=== PATIENT | male | born 1950 | race Caucasian/White ===

== ENCOUNTER 2017-05-31 09:17 | Outpatient (CLI) | payer MEDICARE, BC ==
--- NOTE | 2017-05-31 15:20 | RAD ---
LEFT SHOULDER 3 VIEWS: Date: 05/31/17 HISTORY: 66-year-old male with left shoulder pain. 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 No evidence for acute fracture or dislo cation. Mild left apical pleural thickening. IMPRESSION: Arthrosis and degenerative changes left shoulder without fracture or dislocation. POS: [facility]
== END 2017-05-31 09:18 | disposition home or self-care (01) ==
LOC: NAV RAD 09:17
PROVIDERS: ATTEND Family Medicine
DX: M25.512 Pain in left shoulder (principal); M19.012 Primary osteoarthritis, left shoulder

== ENCOUNTER 2023-05-25 16:10 | Outpatient (CLI) | payer MEDICARE, OTHER | END 2023-05-25 16:11 | disposition home or self-care (01) | LOC: NAV RAD 16:10 | PROVIDERS: ATTEND Nurse Practitioner Family | DX: M54.50 Low back pain, unspecified (principal); M47.817 Spondylosis without myelopathy or radiculopathy, lumbosacral region | CPT/HCPCS: 72110 ==